=== PATIENT | female | born 1970 | race Hispanic/Latino ===

== ENCOUNTER 2018-05-11 11:55 | Outpatient (CLI) | payer OTHER | END 2018-05-11 11:56 | disposition home or self-care (01) | LOC: BICRAD 11:55 | PROVIDERS: ATTEND Urology | DX: N20.2 Calculus of kidney with calculus of ureter (principal) | CPT/HCPCS: 74018 ==

== ENCOUNTER 2018-08-06 12:54 | Outpatient (CLI) | payer OTHER | END 2018-08-06 12:55 | disposition home or self-care (01) | LOC: BICMAMMO 12:54 | PROVIDERS: ATTEND Physician Assistant | DX: Z12.31 Encounter for screening mammogram for malignant neoplasm of breast (principal); R92.1 Mammographic calcification found on diagnostic imaging of breast; Z80.3 Family history of malignant neoplasm of breast | CPT/HCPCS: 77063; 77067 ==

== ENCOUNTER 2019-01-25 10:51 | Outpatient (CLI) | payer OTHER ==
--- NOTE | 2019-01-25 11:51 | RAD ---
FRONTAL VIEW ABDOMEN KUB: INDICATION: Calculus of kidney. FINDINGS: There is a punctate density overlying the right renal shadow. The left renal shadow is obscured by b owel content. Osseous structures are intact. There are phleboliths again seen at the pelvis. IMPRESSION: 1. Punctate density overlying the right renal shadow indicative of nephrolithiasis. 2. The prior left renal calculi are largely obscured by prominent overlying bowel content, difficult to reliably assess on the basis of this exam. A few of the prior punctate calcifications are seen a t the expected left renal shadow region. POS: [facility]
== END 2019-01-25 10:52 | disposition home or self-care (01) ==
LOC: BICRAD 10:51
PROVIDERS: ATTEND Urology
DX: N20.0 Calculus of kidney (principal); N28.89 Other specified disorders of kidney and ureter
CPT/HCPCS: 74018

== ENCOUNTER 2019-09-20 15:01 | Outpatient (CLI) | payer OTHER ==
--- NOTE | 2019-09-20 15:39 | MMO ---
Bilateral MAMMO Bilat Screen [facility]. CLINICAL HISTORY: Patient is 49 years old and is seen for screening. The patient has the following family history of breast cancer: mother, at age 45. The patient has no personal history of cancer. VIEWS: The views performed were: bilateral craniocaudal with tomosynthesis and bilateral mediolateral oblique with tomosynthesis. FILMS COMPARED: The present examination has been compared to prior imaging studies performed at [facility] on 06/18/2015, 06/27/2016, 07/21/2017 and 08/06/2018. This study has been interpreted with the assistance of computer-aided detection. MAMMOGRAM FINDINGS: There are scattered fibroglandular densities. There are no suspicious masses, suspicious calcifications, or new areas of architectural distortion. IMPRESSION: THERE IS NO MAMMOGRAPHIC EVIDENCE OF MALIGNANCY. A ROUTINE FOLLOW-UP MAMMOGRAM IN 1 YEAR IS RECOMMENDED. THE RESULTS OF THIS EXAM WERE SENT TO THE PATIENT. ACR BI-RADS Category 1 - Negative MAMMOGRAPHY NOTE: 1. A negative mammogram report should not delay a biopsy if a dominant of clinically suspicious mass is present. 2. Approximately 10% to 15% of breast cancers are not detected by mammography. 3. Adenosis and dense breasts may obscure an underlying neoplasm. Reported by: MARIANA RAMIREZ MD Electonically Signed: [id number]
== END 2019-09-20 15:02 | disposition home or self-care (01) ==
LOC: BICMAMMO 15:01
PROVIDERS: ATTEND Physician Assistant
DX: Z12.31 Encounter for screening mammogram for malignant neoplasm of breast (principal); Z80.3 Family history of malignant neoplasm of breast
CPT/HCPCS: 77063; 77067

== ENCOUNTER 2020-01-24 09:15 | Outpatient (CLI) | payer OTHER ==
--- NOTE | 2020-01-24 09:54 | RAD ---
Exam: 1 view abdomen HISTORY: Renal calculi COMPARISON: January 25, 2019 FINDINGS: Nonspecific bowel gas pattern. No evidence of bowel distention or dilatation. Multiple punctate calcifications project over the left or right renal silhouette suggesting bilateral renal calculi. Largest calcification appears to be 0.5 cm and projects over the mid right renal silhouette. Multiple opacification the left hemipelvis are unchanged and presumably phleboliths. A left ureteral calculus cannot be excluded. No acute osseous abnormalities IMPRESSION: 1. Bilateral nephrolithiasis. 2. Left hemipelvic calcifications as described above. Phleboliths are favored. Left ureteral calculi cannot be excluded.
== END 2020-01-24 09:16 | disposition home or self-care (01) ==
LOC: BICRAD 09:15
PROVIDERS: ATTEND Urology
DX: N20.0 Calculus of kidney (principal); N28.89 Other specified disorders of kidney and ureter
CPT/HCPCS: 74018

== ENCOUNTER 2020-10-08 14:32 | Outpatient (CLI) | payer OTHER ==
--- NOTE | 2020-10-08 14:59 | MMO ---
Bilateral MAMMO Bilat Screen [facility]. CLINICAL HISTORY: Patient is 50 years old and is seen for screening. The patient has the following family history of breast cancer: mother, at age 45. The patient has no personal history of cancer. VIEWS: The views performed were: bilateral craniocaudal with tomosynthesis and bilateral mediolateral oblique with tomosynthesis. FILMS COMPARED: The present examination has been compared to prior imaging studies performed at [facility] on 06/27/2016, 07/21/2017, 08/06/2018 and 09/20/2019. This study has been interpreted with the assistance of computer-aided detection. MAMMOGRAM FINDINGS: There are scattered fibroglandular densities. There are no suspicious masses, suspicious calcifications, or new areas of architectural distortion. IMPRESSION: THERE IS NO MAMMOGRAPHIC EVIDENCE OF MALIGNANCY. A ROUTINE FOLLOW-UP MAMMOGRAM IN 1 YEAR IS RECOMMENDED. THE RESULTS OF THIS EXAM WERE SENT TO THE PATIENT. ACR BI-RADS Category 1 - Negative MAMMOGRAPHY NOTE: 1. A negative mammogram report should not delay a biopsy if a dominant of clinically suspicious mass is present. 2. Approximately 10% to 15% of breast cancers are not detected by mammography. 3. Adenosis and dense breasts may obscure an underlying neoplasm. Reported by: ELI RAMIREZ MD Electonically Signed: [id number]
== END 2020-10-08 14:33 | disposition home or self-care (01) ==
LOC: BICMAMMO 14:32
PROVIDERS: ATTEND Physician Assistant
DX: Z12.31 Encounter for screening mammogram for malignant neoplasm of breast (principal); Z80.3 Family history of malignant neoplasm of breast
CPT/HCPCS: 77063; 77067

== ENCOUNTER 2021-02-07 10:14 | Outpatient (CLI) | payer OTHER | END 2021-02-07 10:15 | disposition home or self-care (01) | LOC: BICRAD 10:14 | PROVIDERS: ATTEND Urology | DX: N20.0 Calculus of kidney (principal) | CPT/HCPCS: 74018 ==